=== PATIENT | female | born 1945 | race Caucasian/White ===

== ENCOUNTER 2017-02-22 02:49 | Inpatient (IN) | payer OTHER ==
[2017-02-22] VITALS (36 sets, daily range): BP systolic 68–174; BP diastolic 29–119
[~2017-02-22] VITALS: Ht 165.1 cm; Wt 63.7 kg
--- NOTE | ~2017-02-22 | HC ---
[facility] [place] [address] CONSULTATION Name: FRANCES PEARSON Room #: 208-P [facility] IN M.R.#: [id number] Admission: 02/22/17 Attend Phys: Yong Serrato DO Discharge: Date of : 41 Report #: [id number] THIS REPORT FOR: //name// CC: Yong Lange REASON FOR CONSULTATION: I was asked to evaluate concerning a community-acquired pneumonia. HISTORY OF PRESENT ILLNESS: The patient is a 71-year-old with underlying history of COPD who, for the last 3 days, has had progressive issue with cough, purulent sputum production and shortness of breath. She notes that her was sick with an upper respiratory tract infection prior to her onset. She has not had a flu vaccine this year. She does report a pneumococcal vaccine in the past. She denied any fever, chills or sweats. She has had some purulent sputum production at the onset without hemoptysis. Now has a mostly nonproductive cough. She presented to the Emergency Room with the above issues. She had oxygen saturations in the 80s. She is now on oxygen per nasal cannula at 2 liters. Blood pressure did drop in the 90s systolic with tachycardia in the 120s. She still remains tachycardic, although blood pressure has improved. She has received IV fluids and was started on vancomycin, Zosyn, and Levaquin. ALLERGIES: DOXYCYCLINE, ERYTHROMYCIN, SULFA, GUAIFENESIN. MEDICATIONS: As noted on her MAY, which were reviewed including her current antibiotics as listed above. She has been on inhaled corticosteroids, but no oral steroids prior to her admission. PAST MEDICAL HISTORY: COPD, diabetes, depression, osteoarthritis, fibromyalgia, stroke, UTI. FAMILY HISTORY: Noncontributory. SOCIAL HISTORY: She is a past smoker, no significant alcohol intake. REVIEW OF SYSTEMS: No chest pain, nausea, vomiting or diarrhea. No dysuria or frequency. The patient denies any recent travel, HIV risk factors, tuberculosis. PHYSICAL EXAMINATION: VITAL SIGNS: She was afebrile and hemodynamically stable with blood pressure 102/57, pulse 120, a MAP of 71. She is on 2 liters of oxygen per nasal cannula with an O2 saturation of 95%. GENERAL: She is alert and conversant. She was receiving a nebulized treatment [address] [address] CONSULTATION Name: FRANCES PEARSON Room #: 208-P [facility] IN ..#: [id number] Admission: 02/22/17 Attend Phys: Yong Serrato DO Discharge: Date of : 41 Report #: [id number] at the beginning of my evaluation. HEENT: Unremarkable. NECK: Supple. No adenopathy. LUNGS: Decreased breath sounds bilaterally with upper airway rhonchi, mostly in the upper mid chest. HEART: Tachycardic and regular. ABDOMEN: Soft and nontender. No hepatosplenomegaly or mass identified. EXTREMITIES: Unremarkable. NEUROLOGIC: Nonfocal. LABORATORY STUDIES: Sodium 145, potassium 3.4, bicarbonate 22, creatinine 1.4, lactate 4.7. Troponin negative. BNP 1463. INR 1. Hemoglobin 9.7, WBC 11.6, platelet count 362,000. Procalcitonin 0.15. ABG on 2 liters showed a pO2 of 68, pCO2 34, pH 7.32. Lactate of 5. Blood and sputum cultures are pending. Influenza antigen negative. Chest x-ray, no acute pulmonary infiltrates. IMPRESSION: A 71-year-old with exacerbation of chronic obstructive pulmonary disease, acute bronchitis with associated tachycardia. She dropped her pressure initially, which is responding to IV fluids. The patient has not received a flu vaccination. PLAN: We would recommend continuing IV antibiotic therapy along with corticosteroids. We will add Tamiflu. We will screen for viral respiratory pathogens and await sputum culture. Once patient is out of the Intensive Care Unit and stabilized, we will vaccinate. <ELECTRONICALLY SIGNED> By: Cuauhtemoc Haas MD 02/26/17 1357 1042 1844 Cuauhtemoc Haas MD /nt
--- NOTE | ~2017-02-22 | EKG ---
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 : 1945 Requested By: George Pierre Order Number: [id number] MD: Eliazar Fang Measurements Intervals [place] Rate: 137 P: 81 MI: 101 QRS: 29 QRSD: 88 T: -12 QT: 304 QTc: 459 Interpretive Statements Sinus tachycardia ventricular premature complexes Borderline T abnormalities, inferior leads Baseline wander in lead(s) V1,V2 Compared to ECG 01/06/2013 14:31:55 Ventricular premature complex(es) now present Electronically Signed On 02-22-2017 9:19:39 CENTRAL OFFICE INSTALLER by Eliazar Fang [email or web address] <ELECTRONICALLY SIGNED> By: Eliazar Fang MD, [facility] 02/22/17 0919 0256 0256 Eliazar Fang MD, [facility] /EPI
--- NOTE | ~2017-02-22 | HC ---
[facility] [place] [address] CONSULTATION Name: FRANCES PEARSON Room #: 208-P [facility] IN ..#: [id number] Admission: 02/22/17 Attend Phys: Danyel Reed MD Discharge: 03/06/17 Date of : 41 Report #: [id number] THIS REPORT FOR: //name// CC: Danyel Lange DATE OF SERVICE: 02/22/2017 REASON FOR CONSULTATION: Shortness of breath. IMPRESSION: 1. Exacerbation of chronic obstructive pulmonary disease. 2. Acute hypoxemic respiratory failure. 3. Acute kidney injury. PLAN: At the time, EKG, D-dimer, viral panel, Legionella and strep urine test, SCDs, corticosteroids and V/Q scan were ordered as well as a procalcitonin. Flutter and sputum studies were ordered as well as chest x-ray and ABG. HISTORY OF PRESENT ILLNESS: A 71-year-old female with history of cough, shortness of breath for a week and weakness, unable to get out of bed. She did not have the flu vaccine, however, had pneumonia shot, was found to have sats in the 80s in the ER and placed on O2. Had a tachycardia in the ER and was given fluids. ALLERGIES: To GUAIFENESIN, SULFA, DOXYCYCLINE and ERYTHROMYCIN. MEDICATIONS: Reviewed. FAMILY HISTORY: Noncontributory. SOCIAL HISTORY: Positive tobacco in past. Negative ETOH. REVIEW OF SYSTEMS: No chest pain. No nausea or vomiting or dysuria. No hemoptysis or hematemesis. Does have a history of fibromyalgia, osteoarthritis, diabetes, UTI, depression and COPD. PHYSICAL EXAMINATION: VITAL SIGNS: She was on 2 liters. Awake, alert and remembered me from the past. LUNGS: Showed decreased breath sounds. HEART: Tachycardic. ABDOMEN: Bowel sounds present. EXTREMITIES: Showed no clubbing or edema. LABORATORY DATA: Creatinine . Hemoglobin was 9.7 and white count 11.6. [facility] [address] [place] [address] CONSULTATION Name: FRANCES PEARSON Room #: 208-[facility]#: [id number] Admission: 02/22/17 Attend Phys: Danyel Reed MD Discharge: 03/06/17 Date of : 43 Report #: [id number] Blood cultures have been drawn. RADIOLOGICAL DATA: Unable to do CT PE protocol. Chest x-ray did not show acute infiltrate. <ELECTRONICALLY SIGNED> By: Josh Good MD 07/17/17 2043 [id number] [id number] Josh Good MD /nt
--- NOTE | ~2017-02-22 | TEE ---
[facility] [place] [address] TRANSESOPHAGEAL ECHOCARDIOGRAM Name: FRANCES PEARSON Room #: 208-P [facility] IN [facility]#: [id number] Admission: 02/22/17 Attend Phys: Danyel Reed MD Discharge: Date of : 41 Date of Service: 02/22/17 1618 Report #: [id number] THIS REPORT FOR: //name// CC: Yong Lange DATE OF SERVICE: 02/22/2017 REASON FOR CONSULTATION: 1. Exacerbation of COPD. 2. Possible pneumonia, possible viral infection/bronchitis. 3. History of diabetes. 4. History of CVA and dementia. 5. Acute kidney injury. 6. Leukocytosis. 7. Anemia. PLAN: Continue antibiotics per ID, corticosteroids, aerosol therapy. We will follow closely with you. DVT and ulcer prophylaxis. HISTORY: A 71-year-old female comes in with cough, shortness of breath with her , who has been sick, denies fever, chills or night sweats. Denies nausea or vomiting. PAST MEDICAL HISTORY: Includes COPD, diabetes, depression, fibromyalgia, osteoarthritis, CVA, COPD, distant history of MRSA. Meds have included Livox, Protonix, Depakene, Ventolin, Flonase, Depakote. ALLERGIES: DOXYCYCLINE, ERYTHROMYCIN, GUAIFENESIN, SULFA. SOCIAL HISTORY: Positive tobacco, quit approximately 7 years ago, ETOH per chart. PAST SURGICAL HISTORY: Include bladder repair, partial hysterectomy, left hip pinning. REVIEW OF SYSTEMS: Include COPD, depression, osteoarthritis, fibromyalgia, CVA, GERD, hyperlipidemia, and dementia. The patient denied a history of asthma. PHYSICAL EXAMINATION: VITAL SIGNS: On exam, temperature 97.9, pulse 100, respirations 23, BP 125/64. EYES: Negative icterus. LUNGS: Wheeze bilaterally. HEART: Regular, tachycardic. ABDOMEN: Bowel sounds present. [facility] [place] [address] TRANSESOPHAGEAL ECHOCARDIOGRAM Name: FRANCES PEARSON Room #: 208-P [facility] IN [facility].#: [id number] Admission: 02/22/17 Attend Phys: Danyel Reed MD Discharge: Date of : 41 Date of Service: 02/22/178 Report #: [id number] EXTREMITIES: Showed no calf tenderness. LAB DATA: White count 11.6, hemoglobin 9.7, platelets 362. BUN 16, creatinine 1.5. ProBNP 1463. Influenza negative. Initial ABG on 2 liters 7.323, pCO2 of 35, pO2 of 69. Chest x-ray showed pulmonary hyperexpansion. D-dimer 0.72. Troponin less than 0.04. We will follow closely with you. <ELECTRONICALLY SIGNED> By: Josh Good MD 02/27/17 1907 17 1636 Josh Good MD /rolo
--- NOTE | ~2017-02-22 | EKG ---
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 : 1945 Requested By: Josh Good Order Number: [id number] MD: Eliazar Fang Measurements Intervals [place] Rate: 115 P: 50 WI: 126 QRS: 24 QRSD: 86 T: 64 QT: 357 QTc: 494 Interpretive Statements Sinus tachycardia Ventricular premature complex Borderline low voltage, extremity leads Borderline prolonged QT interval Compared to ECG 01/06/2013 14:31:55 Ventricular premature complex(es) now present Electronically Signed On 02-22-2017 9:22:42 ANATOMIC PATHOLOGIST by Eliazar Fang [email or web address] <ELECTRONICALLY SIGNED> By: Eliazar Fang MD, [facility] 02/22/17921 0 0 Eliazar Fang MD, [facility] /EPI
[~2017-02-22 02:49] MED LIST: ACETAMINOPHEN-1 EAC1 PO; ACETAMINOPHEN325 M1 PO; ACYCLOVIR 400400 MG PO; ADVAIR HFA 1112 UNIT IH; AMARYL1 MG PO; AMBIEN 5 MG TABL5 M1 PO; AMOXICILLIN 50500 M1 PO; ASPIRIN EC81 M1 PO; ATROVENT15 ML; AVELOX400 MG PO; BISACODYL SUPP10 MG RECTAL; CELEXA 20 MG TA20 M1 PO; CIPROFLOXACIN500 M1 PO; CLONAZEPAM 1 MG1 M1 PO; COLACE100 MG PO; DEPAKENE250 MG PO; DEPAKOTE250 MG PO; DICLOFENAC SODI75 M1 PO; ENOXAPARIN40 MG/0.1 SUBQ; ESTRACE0.5 MG PO; FENTANYL PA12 MCG/H1 TRANSDERM; FISH OIL 1,0001 EAC9 PO; FLONASE NS; FLONASE16 GM NASAL; GENTEAL GEL DRO15 ML; GENTEAL GEL DRO15 ML OPHTHALMIC; IBUPROFEN 400400 M1 PO; IBUPROFEN 400400 M2 PO; IPRATROPIUM INH; LIDODERM 5%1 PATC1 TRANSDERM; LUVOX 50MG TABL50 M1 PO; MACROBID 100 M100 M1 PO; METOPROLOL SUCC25 M1 PO; MILK OF MA2400 MG/10 PO; NORCO 5-325 TA1 EACH PO; NORVASC 2.5 MG2.5 M1 PO; NYSTATIN 1100000 U/M OR; OXAZEPAM 15 MG15 M1 PO; PREDNISONE 10 M10 MG; PREDNISONE50 MG PO; PREMARIN0.625 MG PO; PROTONIX40 M2 PO; PYRIDIUM200 MG PO; ROBAXIN500 MG PO; STERAPRED DS10 MG; SYMBICORT160 MCG/4. INH; SYMBICORT80 MCG/4.1 INH; TOPROL XL25 MG PO; TRAMADOL 50 MG50 MG PO; TUSSIONEX PENN473 ML; VENTOLIN HFA INH8 GM INH; VENTOLIN17 GM; VOLTAREN GEL 1100 G2 TOP; XOPENEX0.31 MG/3; ZOCOR40 MG PO; ZYRTEC 10 MG TA10 MG PO; ZYRTEC10 M2 PO; ZYVOX600 MG PO
[2017-02-22 03:16] LABS: HEMATOCRIT 30.8 % (37.0-47.0); HEMOGLOBIN 9.7 gm/dL (12.0-15.0); MCH 26.1 pg (26.0-34.0); MCHC 31.6 g/dL (28.0-37.0); MCV 82.6 fL (80.0-100.0); RBC 3.73 mil/uL (4.20-5.00); RDW 15.8 % (10.5-14.5); WBC 11.6 thou/uL (4.0-11.0)
[2017-02-22 03:24] LABS: ANION GAP 12 mmol/L (7-16); BUN 16 mg/dL (7-18); CALCIUM 9.1 mg/dL (8.5-10.1); CHLORIDE 106 mmol/L (98-107); CO2 25 mmol/L (21-32); CREATININE 1.5 mg/dL (0.6-1.0); GLUCOSE 206 mg/dL (74-106); POTASSIUM 3.7 mmol/L (3.5-5.1); SODIUM 143 mmol/L (136-145)
[2017-02-22 03:33] LABS: TROPONIN-I < 0.04 ng/mL (<0.06)
[2017-02-22] MEDS ORDERED: FLONASE 0.05%50 MCG NASAL (04:45)
[2017-02-22] MEDS ORDERED: DEPAKOTE 250MG250 M1 PO (04:46)
[2017-02-22] MEDS ORDERED: PROTONIX40 M1 PO (04:47)
[2017-02-22] MEDS ORDERED: ZINC SULFATE220 MG PO (04:47)
[2017-02-22] MEDS ORDERED: KLONOPIN1 MG PO (04:48)
[2017-02-22] MEDS ORDERED: VALPROIC A250 MG/51 PO (04:49)
[2017-02-22] MEDS ORDERED: COMBIVENT RESPIM4 GM (04:49)
[2017-02-22] MEDS ORDERED: SIMVASTATIN40 MG PO (04:50)
[2017-02-22] MEDS ORDERED: LUVOX 50MG TABL50 M1 PO (04:50)
[2017-02-22] MEDS ORDERED: COMBIVENT RESPIM4 GM INH (04:51)
[2017-02-22] MEDS ORDERED: MELATONIN3 MG PO (04:51)
[2017-02-22 06:05] LABS: BE(vivo) -7.6 mmol/L (-2 to +3); HCO3 17.6 mmol/L (22.0-26.0); PCO2 34.8 mmHg (35.0-45.0); PO2 68.6 mmHg (80.0-100.0); pH 7.323 (7.360-7.450); sO2 92.6 % (92.0-98.0)
[2017-02-22 06:17] LABS: APTT 22.5 Seconds (24.5-32.8); PROTIME 10.7 Seconds (9.3-11.4)
[2017-02-22 07:30] LABS: CALCIUM 7.7 mg/dL (8.5-10.1); CREATININE 1.4 mg/dL (0.6-1.0); POTASSIUM 3.4 mmol/L (3.5-5.1)
[2017-02-22 10:49] LABS: CREATININE 1.4 mg/dL (0.6-1.0)
[2017-02-22 10:54] LABS: FIBRINOGEN 374.3 mg/dL (210-360)
[2017-02-22 11:01] LABS: APTT 29.4 Seconds (24.5-32.8)
[2017-02-22 16:36] LABS: CALCIUM 7.8 mg/dL (8.5-10.1); POTASSIUM 4.2 mmol/L (3.5-5.1)
[2017-02-22 16:37] LABS: APTT 28.1 Seconds (24.5-32.8)
[2017-02-22 20:14] LABS: APTT 28.2 Seconds (24.5-32.8); FIBRINOGEN 313.8 mg/dL (210-360)
[2017-02-23] VITALS (20 sets, daily range): BP systolic 109–143; BP diastolic 50–128
[2017-02-23 04:32] LABS: HEMATOCRIT 22.4 % (37.0-47.0); MCH 26.2 pg (26.0-34.0); MCHC 31.5 g/dL (28.0-37.0); MCV 83.2 fL (80.0-100.0); RBC 2.69 mil/uL (4.20-5.00); RDW 15.6 % (10.5-14.5); WBC 9.4 thou/uL (4.0-11.0)
[2017-02-23 04:40] LABS: CALCIUM 8.4 mg/dL (8.5-10.1); CREATININE 0.9 mg/dL (0.6-1.0); POTASSIUM 3.8 mmol/L (3.5-5.1)
[2017-02-23 04:44] LABS: HEMOGLOBIN 7.1 gm/dL (12.0-15.0)
[2017-02-23 16:10] LABS: GLYCOHEMOGLOBIN (HGB A1C) 5.3 % (4.8-5.6)
[2017-02-24 05:27] VITALS: BP 133/64
[2017-02-24 06:02] LABS: HEMATOCRIT 22.9 % (37.0-47.0); HEMOGLOBIN 7.1 gm/dL (12.0-15.0); MCH 25.8 pg (26.0-34.0); MCHC 31.2 g/dL (28.0-37.0); MCV 82.8 fL (80.0-100.0); PLATELET COUNT 286 thou/uL (150-400); RBC 2.77 mil/uL (4.20-5.00); RDW 15.6 % (10.5-14.5)
[2017-02-24 06:40] LABS: ABSOLUTE NEUTROPHILS 12.1 thou/uL (1.4-8.2); METAMYELOCYTES 1 %; PLATELET ESTIMATE NORMAL
[2017-02-24 07:40] VITALS: BP 142/65
[2017-02-24 10:30] VITALS: BP 144/66
[2017-02-24 11:10] VITALS: BP 144/66
[2017-02-24 15:15] VITALS: BP 130/60
[2017-02-24 20:00] VITALS: BP 152/61
[2017-02-25 03:45] VITALS: BP 147/65
[2017-02-25 04:39] LABS: HEMATOCRIT 24.6 % (37.0-47.0); HEMOGLOBIN 7.7 gm/dL (12.0-15.0); MCH 25.9 pg (26.0-34.0); MCHC 31.3 g/dL (28.0-37.0); MCV 82.7 fL (80.0-100.0); RBC 2.97 mil/uL (4.20-5.00); RDW 15.8 % (10.5-14.5); WBC 10.7 thou/uL (4.0-11.0)
[2017-02-25 04:45] LABS: CALCIUM 8.8 mg/dL (8.5-10.1)
[2017-02-25 04:48] LABS: POTASSIUM 2.9 mmol/L (3.5-5.1)
[2017-02-25 07:21] VITALS: BP 156/80
[2017-02-25 12:10] VITALS: BP 144/71
[2017-02-25 21:30] VITALS: BP 156/67
[2017-02-26 04:50] VITALS: BP 147/67
[2017-02-26 05:06] LABS: HEMATOCRIT 27.2 % (37.0-47.0); HEMOGLOBIN 8.8 gm/dL (12.0-15.0); MCH 26.4 pg (26.0-34.0); MCHC 32.5 g/dL (28.0-37.0); MCV 81.4 fL (80.0-100.0); RBC 3.34 mil/uL (4.20-5.00); RDW 15.8 % (10.5-14.5); WBC 10.5 thou/uL (4.0-11.0)
[2017-02-26 05:15] LABS: CALCIUM 9.1 mg/dL (8.5-10.1); POTASSIUM 3.9 mmol/L (3.5-5.1)
[2017-02-26 05:18] LABS: % SATURATION 7 % (20-39); IRON 22 ug/dL (50-170); TIBC 294 ug/dL (250-450)
[2017-02-26 06:18] LABS: FOLIC ACID 33.3 ng/mL (8.6-58.9)
[2017-02-26 07:30] VITALS: BP 139/86
[2017-02-26 11:40] VITALS: BP 125/47
[2017-02-26 15:50] VITALS: BP 144/73
[2017-02-26 19:21] VITALS: BP 130/65
[2017-02-26] MEDS ORDERED: LISINOPRIL2.5 MG PO (21:27)
[2017-02-26 22:07] LABS: ADENOVIRUS Negative (Negative); INFLUENZA A Negative (Negative); INFLUENZA B Negative (Negative); METAPNEUMOVIRUS Negative (Negative); PARAINFLUENZA 1 Negative (Negative); PARAINFLUENZA 2 Negative (Negative); PARAINFLUENZA 3 Negative (Negative); RHINOVIRUS Negative (Negative); RSV A Negative (Negative); RSV B Positive (Negative)
[2017-02-27 04:26] VITALS: BP 150/80
[2017-02-27 07:10] VITALS: BP 147/79
[2017-02-27 11:50] VITALS: BP 129/57
[2017-02-27 15:40] VITALS: BP 131/53
[2017-02-27 19:34] VITALS: BP 131/59
[2017-02-28 03:34] VITALS: BP 151/61
[2017-02-28 07:44] VITALS: BP 143/65
[2017-02-28 11:29] VITALS: BP 113/50
[2017-02-28 15:21] VITALS: BP 133/62
[2017-02-28 19:31] VITALS: BP 143/49
[2017-03-01 03:40] VITALS: BP 153/69
[2017-03-01 07:46] VITALS: BP 132/62
[2017-03-01 08:00] LABS: BE(vivo) 6.4 mmol/L (-2 to +3); HCO3 29.7 mmol/L (22.0-26.0); PO2 60.9 mmHg (80.0-100.0); pH 7.522 (7.360-7.450); sO2 93.7 % (92.0-98.0)
[2017-03-01 12:17] VITALS: BP 122/35
[2017-03-01 13:23] LABS: CALCIUM 8.6 mg/dL (8.5-10.1); CREATININE 0.9 mg/dL (0.6-1.0); POTASSIUM 3.5 mmol/L (3.5-5.1)
[2017-03-01 15:41] VITALS: BP 143/48
[2017-03-01 19:18] VITALS: BP 128/52
[2017-03-02 03:54] VITALS: BP 133/65
[2017-03-02 07:43] VITALS: BP 128/62
[2017-03-02 11:19] VITALS: BP 113/72
[2017-03-02 15:27] VITALS: BP 110/74
[2017-03-02 19:25] VITALS: BP 137/47
[2017-03-03 04:10] VITALS: BP 134/60
[2017-03-03 09:00] VITALS: BP 130/62
[2017-03-03 13:20] VITALS: BP 114/52
[2017-03-03 16:20] VITALS: BP 110/34
[2017-03-03 16:47] VITALS: BP 130/60
[2017-03-03 19:52] VITALS: BP 136/65
[2017-03-04 04:20] VITALS: BP 130/54
[2017-03-04 08:00] VITALS: BP 128/53
[2017-03-04 11:30] VITALS: BP 128/54
[2017-03-04 15:40] VITALS: BP 134/64
[2017-03-04 19:43] VITALS: BP 135/62
[2017-03-05 03:18] VITALS: BP 142/58
[2017-03-05 07:11] LABS: HEMATOCRIT 24.9 % (37.0-47.0); MCH 26.6 pg (26.0-34.0); MCV 83.2 fL (80.0-100.0); PLATELET COUNT 283 thou/uL (150-400); RDW 15.7 % (10.5-14.5); WBC 11.4 thou/uL (4.0-11.0)
[2017-03-05 07:20] VITALS: BP 141/58
[2017-03-05 07:55] LABS: CALCIUM 8.8 mg/dL (8.5-10.1); CREATININE 0.8 mg/dL (0.6-1.0); POTASSIUM 3.4 mmol/L (3.5-5.1)
[2017-03-05 12:01] LABS: ABSOLUTE NEUTROPHILS 10.7 thou/uL (1.4-8.2); ANISOCYTOSIS 2+; MICROCYTES 1+; POLYCHROMASIA SLIGHT
[2017-03-05 12:14] VITALS: BP 126/54
[2017-03-05 16:02] VITALS: BP 123/50
[2017-03-05 19:47] VITALS: BP 141/58
[2017-03-06 04:21] VITALS: BP 149/81
[2017-03-06 07:10] VITALS: BP 144/77
[2017-03-06] MEDS ORDERED: PREDNISONE 10 M10 MG PO (09:11)
[2017-03-06 11:02] VITALS: BP 156/70
== END 2017-03-06 13:14 | DRG 871 ==
LOC: ER 02:49 → 2N 03:56 → ICU 03:56 → EROBS 03:56 → ER 03:56 → ICU 05:42 → 2N 02-23 17:14
PROVIDERS: Emergency Medicine; Hospitalist; Internal Medicine; Internal Medicine Geriatric Medicine; Internal Medicine Pulmonary Disease; Nurse Practitioner; Nurse Practitioner Family
DX: A41.9 Sepsis, unspecified organism (principal); J18.9 Pneumonia, unspecified organism; J96.01 Acute respiratory failure with hypoxia; N17.9 Acute kidney failure, unspecified; J44.0 Chronic obstructive pulmonary disease with (acute) lower respiratory infection; J44.1 Chronic obstructive pulmonary disease with (acute) exacerbation; F32.9 Major depressive disorder, single episode, unspecified; F03.90 Unspecified dementia, unspecified severity, without behavioral disturbance, psychotic disturbance, mood disturbance, and anxiety; E11.9 Type 2 diabetes mellitus without complications; M19.90 Unspecified osteoarthritis, unspecified site; J20.9 Acute bronchitis, unspecified; E78.5 Hyperlipidemia, unspecified; E87.6 Hypokalemia; F41.9 Anxiety disorder, unspecified; K21.9 Gastro-esophageal reflux disease without esophagitis; B97.4 Respiratory syncytial virus as the cause of diseases classified elsewhere; R26.81 Unsteadiness on feet; R65.20 Severe sepsis without septic shock; Z88.8 Allergy status to other drugs, medicaments and biological substances; Z88.2 Allergy status to sulfonamides; Z86.73 Personal history of transient ischemic attack (TIA), and cerebral infarction without residual deficits; Z88.1 Allergy status to other antibiotic agents; Z79.899 Other long term (current) drug therapy; Z87.891 Personal history of nicotine dependence; Z86.14 Personal history of Methicillin resistant Staphylococcus aureus infection; Z79.4 Long term (current) use of insulin
CPT/HCPCS: 10078; 10081; 27000

== ENCOUNTER 2018-08-14 08:32 | Inpatient (IN) | payer OTHER ==
[~2018-08-14] VITALS: Ht 165.1 cm; Wt 60.3 kg
[~2018-08-14 08:32] MED LIST changes: +COMBIVENT RESPIM4 GM; +COMBIVENT RESPIM4 GM INH; +DEPAKOTE 250MG250 M1 PO; +FLONASE 0.05%50 MCG NASAL; +KLONOPIN1 MG PO; +LISINOPRIL2.5 MG PO; +MELATONIN3 MG PO; +PREDNISONE 10 M10 MG PO; +PROTONIX40 M1 PO; +SIMVASTATIN40 MG PO; +VALPROIC A250 MG/51 PO; +ZINC SULFATE220 MG PO
[2018-08-14 08:33] VITALS: BP 138/48
[2018-08-14 09:49] LABS: HEMATOCRIT 30.4 % (37.0-47.0); HEMOGLOBIN 9.8 gm/dL (12.0-15.0); MCH 27.3 pg (26.0-34.0); MCHC 32.2 g/dL (28.0-37.0); MCV 84.7 fL (80.0-100.0); RBC 3.59 mil/uL (4.20-5.00); RDW 16.8 % (10.5-14.5); WBC 10.9 thou/uL (4.0-11.0)
[2018-08-14 10:00] LABS: ANION GAP 9 mmol/L (7-16); BUN 25 mg/dL (7-18); CHLORIDE 103 mmol/L (98-107); CO2 28 mmol/L (21-32); CREATININE 1.1 mg/dL (0.6-1.0); GLUCOSE 138 mg/dL (74-106); POTASSIUM 4.2 mmol/L (3.5-5.1); SODIUM 140 mmol/L (136-145)
[2018-08-14 10:08] LABS: TROPONIN-I <0.06 ng/mL (<0.06)
[2018-08-14 12:47] VITALS: BP 149/93
--- NOTE | 2018-08-14 13:22 | NUR ---
FIRST ATTEMPT TO CALL REPORT AT THIS TIME, WAS TOLD FLOOR RN WOULD "CALL RIGHT BACK"
[2018-08-14 14:06] VITALS: BP 156/60
[2018-08-14 19:21] VITALS: BP 147/62
--- NOTE | 2018-08-14 19:55 | NUR ---
[age] YEAR OLD FEMALE ADMITTED TO 3WEST ROOM 362. PT WAS BROUGHT INTO THE DUE TO SOA AND COUGH. PT IS ALERT AND ORIENTED TIMES FOUR. VSS, 95%RA, SR ON TELE. PT DENIES PAIN AT THIS TIMES. PT TOLERATES MEDS AND DINNER. PT UP TO RESTROOM WITH STANDBY ASSIST WITH WALKER. WILL CONTINUE TO MONITOR.
[2018-08-15 03:28] VITALS: BP 130/63
[2018-08-15 05:40] LABS: CALCIUM 9.8 mg/dL (8.5-10.1); MAGNESIUM 2.1 mg/dL (1.8-2.4); POTASSIUM 4.2 mmol/L (3.5-5.1)
--- NOTE | 2018-08-15 06:43 | NUR ---
ASSUMED CARE OF PT AT 1900. A&Ox4, PLEASANT AND COOPERATIVE. ST ON TELE W ONE 13 RUN OF VTACH ON TELE WHILE SHE WAS SLEEPING, MONITORING CLOSELY. PRODUCTIVE COUGH, WHEEZY LUNG SOUNDS. BREATHING TXs AND IV MEDS GIVEN ORDERED. PT WAS ABLE TO SLEEP AROUND 0000. UP TO BR W/ WALKER W SBA. GLUCOSE WAS 132 AT DINNER, NO INSULIN GIVEN. CURRENTLY RESTING. PROGRESSING WELL TOWARDS POC GOALS.
[2018-08-15 07:15] VITALS: BP 149/77
--- NOTE | 2018-08-15 08:12 | EKG ---
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: [facility] : 1945 Requested By: Ace Garces Order Number: [id number] MD: Eliazar Fang Measurements Intervals [place] Rate: 106 P: 78 NM: 128 QRS: 35 QRSD: 74 T: 49 QT: 327 QTc: 435 Interpretive Statements Sinus tachycardia Otherwise normal tracing Compared to ECG 02/22/2017 08:11:24 No significant change was found Electronically Signed On 08-15-2018 8:12:17 CDT by Eliazar Fang [email or web address] ��������������������������������������������� <ELECTRONICALLY SIGNED> ���������������������������������������� By: Eliazar Fang MD, [facility] ��������������������������������������������� 08/15/18 0812 0857 0857 Eliazar Fang MD, [facility] /EPI
--- NOTE | 2018-08-15 08:17 | NUR ---
ASSESSMENT: CM REVIEWED CHART AND MET WITH PATIENT AT THE [facility]. PT WAS ADMITTED WITH COPD EXACERBATION. PT REPORTS SHE LIVES IN A HOUSE WITH HER . PT REPORTS ONE STEP TO ENTER AND NO STEPS SHE HAS TO USE ONCE INSIDE. PT REPORTS SHE USES A WALKER FOR AMBULATION. PT REPORTS HAVING A GRAB BAR AND SHOWER CHAIR AND IS INDEPENDENT WITH ADLS. PT REPORTS SHE HAS BEEN TO [facility] IN THE PAST FOR SNF AND LOVED IT THERE. PT REPORTS SHE HAD HH IN THE PAST BUT UNSURE THE AGENCY AND REPORTS SHE DID NOT FIND HH HELPFUL AND STATES HER IS MORE HELPFUL. CM DISCUSSED ROLE. PT STATES SHE DOES NOT ANTICIPATE HAVING ANY NEEDS THIS TIME AND WANTS TO RETURN HOME. PT/OT ORDERED. CM WILL CONTINUE TO FOLLOW TO ASSIST NEEDED. CM ATTEMPTED TO CONTACT PATIENTS DAUGHTER BUT SHE DID NOT ANSWER AND VM HAS NOT BEEN SET UP. PT REPORTS HER DAUGHTER AND GRANDAUGHTER ARE VERY SUPPORTIVE. CM WILL CONTINUE TO FOLLOW TO ASSIST NEEDED.
[2018-08-15] MEDS ORDERED: DEPAKOTE125 MG PO (10:35)
[2018-08-15] MEDS ORDERED: TYLENOL EXTRA500 MG PO (10:40)
[2018-08-15] MEDS ORDERED: KLOR-CON 1010 MEQ PO (10:43)
[2018-08-15] MEDS ORDERED: CEFDINIR300 MG PO (10:45)
[2018-08-15] MEDS ORDERED: LUVOX 50MG TABL50 M1 PO (10:46)
[2018-08-15 15:33] VITALS: BP 150/66
--- NOTE | 2018-08-15 18:29 | NUR ---
PT WAS EATING SALAD FOR LUNCH AND BEGAN FORCEFULLY COUGHING..MADE PAITIENT NPO...SPEECH CONSULTED [facility] CALLED FOR TREATMENT..SPEECH RECOMMENDED STRICT NPO AND NOTIFIED .WILL MONITOR..
[2018-08-15 19:11] VITALS: BP 156/70
[2018-08-16 03:40] VITALS: BP 136/74
[2018-08-16 05:18] LABS: HEMATOCRIT 27.8 % (37.0-47.0); HEMOGLOBIN 9.1 gm/dL (12.0-15.0); MCH 27.5 pg (26.0-34.0); MCHC 32.7 g/dL (28.0-37.0); MCV 84.1 fL (80.0-100.0); RBC 3.31 mil/uL (4.20-5.00); RDW 16.7 % (10.5-14.5); WBC 8.8 thou/uL (4.0-11.0)
[2018-08-16 05:45] LABS: CALCIUM 10.1 mg/dL (8.5-10.1); CREATININE 1.2 mg/dL (0.6-1.0); POTASSIUM 3.4 mmol/L (3.5-5.1)
[2018-08-16 07:55] VITALS: BP 152/76
--- NOTE | 2018-08-16 07:58 | NUR ---
ASSUMED CARE OF PT AT 1900. A&Ox4, PLEASANT, COOPERATIVE. VS STABLE. NPO MOST OF NOC. DID GIVE PO MEDS FOR ANXIETY AND INSOMNIA D/T CRYING AND HIGH ANXIETY LEVEL LAST NOC. 1-2L O2 VIA NC, WHEEZY, COARSE W/ CRACKLES ALL AREAS. C/O STOMACH DISTENTION AND SWELLING. UP MORE THAN 10XS TO BR W/ LOW UOP. SLOW PROGRESSION TOWARDS POC GOALS.
--- NOTE | 2018-08-16 16:24 | NUR ---
Assumed care of pt at 0700. Pt has been A&Ox4. Patient has denied pain today. SOB with exertion. Pt has been ST with PVCs on tele. Dr. Reddy met with pt this morning and discussed Echo results. No notable concerns from Echo. Pt is in good spirits and is actively working toward goals of more movement and respiratory improvement. Pt is progressing toward her POC and DC goals. Will continue to monitor and assess.
[2018-08-16 16:45] VITALS: BP 146/60
[2018-08-16 19:51] VITALS: BP 132/52
[2018-08-17 04:30] VITALS: BP 179/73
[2018-08-17 07:52] VITALS: BP 155/73
--- NOTE | 2018-08-17 07:52 | NUR ---
Pt. requested anxiety med to help her relax and help her go to sleep since she had a busy day and feels tired. Lorazepam 0.5 mg IV given around 2104. She slept well and stated it did help with her anxiety though when she first woke up she got disoriented. She easily reoriented and this am remembered what happened. O2 at 2L/NC , shortness of breath with exertion. ST with PVC's and HR up in the 130's -140's when ambulating to bathroom. Scheduled metoprolol IV given. Uses walker to ambulate. Wears own brief for stress incontinence. Kept NPO per order. Will continue to monitor.
--- NOTE | 2018-08-17 13:43 | NUR ---
Assumed care of pt at 0700. Pt has been A&Ox4. Pt reports being more tired than usual today even though she "slept better" last night. Pt denies pain. SOB upon exertion. Pt reamins NPO and in order to increase nutritional intake, per Dr. Eugene, can trial and resume soft foods until speech eval tomorrow. Per Dr. Eugene will also try to wean pt off of 2L NC today. Pt is slowly progressing towrd POC goals. Will continue to monitor and assess.
[2018-08-17 15:50] VITALS: BP 146/71
--- NOTE | 2018-08-17 16:28 | NUR ---
DC'd pt's O2 and saturations remained in mid-90s at a 5-minute and 30-minute check. RT saw pt later in afternoon and confirmed pt saturations were in [id number]-pnqll 90s on RA.
[2018-08-17 19:20] VITALS: BP 140/69
[2018-08-18 03:45] VITALS: BP 160/77
--- NOTE | 2018-08-18 06:48 | NUR ---
ASSUMED CARE OF PT AT 1900. A&Ox4, COOPERATIVE. VS STABLE. WAS VERY TEARFUL WITH A LOT OF ANXIETY AT START OF SHIFT. HAD NOT RECEIVED CLONAZEPAM X 2 DOSES WHICH SHE HAS BEEN ON FOR 30 YEARS DUE TO CHANGES IN DIET. GAVE TO PT W/ THICKENED LIQUIDS, NO COUGHING OR ASPIRATION NOTED. MELATONIN GIVEN. PT ABLE TO SLEEP AROUND 0300. MILD COUGHING THROUGH OUT SHIFT W/ OCC SPUTUM PRODUCTION. NO ACUTE DISTRESS AND PROGRESSING WELL TOWARDS POC GOALS. WILL CONTINUE TO PROVIDE CARE AND MONITOR.
[2018-08-18 07:53] VITALS: BP 150/76
[2018-08-18 16:01] VITALS: BP 149/68
--- NOTE | 2018-08-18 20:08 | NUR ---
No acute changes this shift. Patient anxious at times, but given support when needed. Tylenol given for hip pain with an ice pack. Patient reported significant pain loss after tylenol administration. Patient did well with thickened liquids today and swallowed PO pills fine. Progress made toward plan of care at this time.
[2018-08-18 20:14] VITALS: BP 154/55
[2018-08-19 04:04] VITALS: BP 160/69
[2018-08-19 05:37] LABS: HEMATOCRIT 31.1 % (37.0-47.0); HEMOGLOBIN 9.8 gm/dL (12.0-15.0); MCH 26.7 pg (26.0-34.0); MCHC 31.6 g/dL (28.0-37.0); MCV 84.5 fL (80.0-100.0); RBC 3.68 mil/uL (4.20-5.00); RDW 16.9 % (10.5-14.5); WBC 7.4 thou/uL (4.0-11.0)
--- NOTE | 2018-08-19 05:43 | NUR ---
ASSUMED CARE AT 1900, ASSESSMENT COMPLETED. PT DENIED NAUSEA OR SOB. PT REPORTED LEFT HIP PAIN DURING THE DAY R/T BURSITIS, STATED IT IMPROVED GREATLY AFTER RECEIVING TYLENOL AND ICE PACK, HAS NOT C/O PAIN THE REST OF THE NIGHT. NO BM SINCE ADMISSION, GIVEN MIRALAX ON DAY SHIFT, PT REPORTS FREQ GAS BUT NO FEELING OF NEEDING TO HAVE A STOOL. ESSENTIAL TREMORS PRESENT, MILDLY WORSE AFTER RECEIVING IV STEROIDS. HS BLOOD SUGAR 145, NO INSULIN GIVEN. HAS BEEN ST OVERNIGHT, OCCASIONAL PVC, HR 98-112. BP MODERATELY ELEVATED, PLAN FOR INCREASED DOSE OF METOPROLOL TODAY. PT TOLERATING PUREE DIET AND THICKENED LIQUIDS, NO SIGNS OF ASPIRATION. NO OTHER CONCERNS, WILL CONTINUE TO MONITOR.
[2018-08-19 05:55] LABS: ALBUMIN 2.8 g/dL (3.4-5.0); CALCIUM 9.7 mg/dL (8.5-10.1); MAGNESIUM 2.3 mg/dL (1.8-2.4); POTASSIUM 3.3 mmol/L (3.5-5.1); TOTAL BILIRUBIN 0.3 mg/dL (<0.1-1.0); TOTAL PROTEIN 6.6 g/dL (6.4-8.2)
[2018-08-19 07:54] VITALS: BP 149/83
--- NOTE | 2018-08-19 12:40 | 2DMMODE ---
[address] [place] [address] 2 D/M-MODE ECHOCARDIOGRAM Name: FRANCES PEARSON Room #: 362-P [facility] IN [facility].#: [id number] ������������� Admission: 08/14/18 ������������� Attend Phys: Danyel Reed MD Discharge: ��� ������������� ��� Date of : 41 Date of Service: 08/15/18 1328 �� Report #: [id number] �������� �������������������������������������������� THIS REPORT FOR: //name// Accession No. : [id number] Patient Name / ID : MICHEL Lane / [id number] Exam Date : 08/15/2018 13:28:26 ( Approved ) Study Comment : Sex / Age : F / 73Y Creator : Jona Pierce Dictator : Package Sealer : Sailmaker : Goran Reddy MD Approver2 : Report Date : 08/15/2018 15:27:37 My Comment : APPROVED REPORT Study performed: 08/15/2018 13:28:26 EXAM: Comprehensive 2D, Doppler, and color-flow Echocardiogram Patient Location: Bedside Room #: 362 Status: routine BSA: 1.66 HR: 111 bpm BP: 149/77 mmHg Rhythm: Tachycardia Other Information Study Quality: Adequate Indications Arrhythmia COPD Diabetes Hypertension/HDD Ventricular tachycardia 2D Dimensions IVC: 18.00 mm Volumes Left Atrial Volume (Systole) [facility] [address] [place] [address] 2 D/M-MODE ECHOCARDIOGRAM Name: FRANCES PEARSON Room #: 362-P ADM IN [facility].#: [id number] ������������� Admission: 08/14/18 ������������� Attend Phys: Danyel Reed MD Discharge: ��� ������������� ��� Date of : 41 Date of Service: 08/15/18 1328 �� Report #: [id number] �������� �������������������������������������������� Single Plane 4CH: 57.74 mL Single Plane 2CH: 42.51 mL LA ESV Index: 33.00 mL/m2 Aortic Valve AoV Peak Donnell.: 1.17 m/s AO Peak Gr.: 5.52 mmHg LVOT Max P.58 mmHg LVOT Max V: 0.80 m/s Pulmonary Valve PV Peak Donnell.: 0.86 m/s PV Peak Gr.: 2.94 mmHg Tricuspid Valve TR Peak Donnell.: 2.50 m/s TR Peak Gr.: 25.10 mmHg PA Pressure: 30.00 mmHg Left Ventricle The left ventricle is normal size. There is normal left ventricular wall thickness. The left ventricular systolic function is normal. The left ventricular ejection fraction is within the normal range. LVEF is 55-60%. Grade I - abnormal relaxation pattern. Right Ventricle The right ventricle is normal size. The right ventricular systolic function is normal. Atria Left atrium is at the upper limits of normal. The right atrium size is normal. Aortic Valve The aortic valve is normal in structure. No aortic regurgitation is present. There is no aortic valvular stenosis. Mitral Valve The mitral valve is normal in structure. Mild mitral regurgitation. No evidence of mitral valve stenosis. Tricuspid Valve The tricuspid valve is normal in structure. There is trace tricuspid regurgitation. Estimated PAP 30 mmHg. There is mild pulmonary hypertension. Pulmonic Valve The pulmonary valve is normal in structure. Trace pulmonic regurgitation. Great Vessels The aortic root is normal in size. IVC is normal in size and collapses >50% with [facility] [address] [place] [address] 2 D/M-MODE ECHOCARDIOGRAM Name: FRANCES PEARSON Room #: 362-P [facility] IN .R.#: [id number] ������������� Admission: 08/14/18 ������������� Attend Phys: Danyel Reed MD Discharge: ��� ������������� ��� Date of : 41 Date of Service: 08/15/18 1328 �� Report #: [id number] �������� �������������������������������������������� inspiration. Pericardium There is no pericardial effusion. <Conclusion> The left ventricle is normal size. There is normal left ventricular wall thickness. The left ventricular systolic function is normal. LVEF is 55-60%. Grade I - abnormal relaxation pattern. The right ventricle is normal size. The right ventricular systolic function is normal. Left atrium is at the upper limits of normal. The aortic valve is normal in structure. Mild mitral regurgitation. There is trace tricuspid regurgitation. Estimated PAP 30 mmHg. ��������������������������������������������� ���������������������������������������� By: ��������������������������������������������� 1328 1238 Goran Reddy MD /MICHAEL
--- NOTE | 2018-08-19 12:44 | 2DMMODE ---
[facility] [place] [address] 2 D/M-MODE ECHOCARDIOGRAM Name: FRANCES PEARSON Room #: 362-P [facility]#: [id number] ������������� Admission: 08/14/18 ������������� Attend Phys: Danyel Reed MD Discharge: ��� ������������� ��� Date of : 41 Date of Service: 08/15/18 1328 �� Report #: [id number] �������� �������������������������������������������� THIS REPORT FOR: //name// Sex/Age : F/73Y Height/Weight : 165.1cm/60.3kg Patient Name : FRANCES PEARSON Study Date : 2018-08-15 BSA : 1.66? Requesting Name : ECHO COMPLETE Date of : 1945 Request Doctor : DIONNE ROA Department : CARD --< Approved Report > Study performed: 08/15/2018 13:28:26 EXAM: Comprehensive 2D, Doppler, and color-flow Echocardiogram Patient Location: Bedside Room #: 362 Status: routine BSA: 1.66 HR: 111 bpm BP: 149/77 mmHg Rhythm: Tachycardia Other Information Study Quality: Adequate Indications Arrhythmia COPD Diabetes Hypertension/HDD Ventricular tachycardia 2D Dimensions IVC: 18.00 mm Volumes Left Atrial Volume (Systole) Single Plane 4CH: 57.74 mL Single Plane 2CH: 42.51 mL LA ESV Index: 33.00 mL/m2 Aortic Valve AoV Peak Donnell.: 1.17 m/s [facility] [address] [place] [address] 2 D/M-MODE ECHOCARDIOGRAM Name: FRANCES PEARSON Room #: 362-P ADM IN .R.#: [id number] ������������� Admission: 08/14/18 ������������� Attend Phys: Danyel Reed MD Discharge: ��� ������������� ��� Date of : 41 Date of Service: 08/15/18 1328 �� Report #: [id number] �������� �������������������������������������������� AO Peak Gr.: 5.52 mmHg LVOT Max P.58 mmHg LVOT Max V: 0.80 m/s Pulmonary Valve PV Peak Donnell.: 0.86 m/s PV Peak Gr.: 2.94 mmHg Tricuspid Valve TR Peak Donnell.: 2.50 m/s TR Peak Gr.: 25.10 mmHg PA Pressure: 30.00 mmHg Left Ventricle The left ventricle is normal size. There is normal left ventricular wall thickness. The left ventricular systolic function is normal. The left ventricular ejection fraction is within the normal range. LVEF is 55-60%. Grade I - abnormal relaxation pattern. Right Ventricle The right ventricle is normal size. The right ventricular systolic function is normal. Atria Left atrium is at the upper limits of normal. The right atrium size is normal. Aortic Valve The aortic valve is normal in structure. No aortic regurgitation is present. There is no aortic valvular stenosis. Mitral Valve The mitral valve is normal in structure. Mild mitral regurgitation. No evidence of mitral valve stenosis. Tricuspid Valve The tricuspid valve is normal in structure. There is trace tricuspid regurgitation. Estimated PAP 30 mmHg. There is mild pulmonary hypertension. Pulmonic Valve The pulmonary valve is normal in structure. Trace pulmonic regurgitation. Great Vessels The aortic root is normal in size. IVC is normal in size and collapses >50% with inspiration. Pericardium There is no pericardial effusion. [facility] [address] [place] [address] 2 D/M-MODE ECHOCARDIOGRAM Name: FRANCES PEARSON Room #: 362-P [facility]#: [id number] ������������� Admission: 08/14/18 ������������� Attend Phys: Danyel Reed MD Discharge: ��� ������������� ��� Date of : 41 Date of Service: 08/15/18 1328 �� Report #: [id number] �������� �������������������������������������������� <Conclusion> The left ventricle is normal size. There is normal left ventricular wall thickness. The left ventricular systolic function is normal. LVEF is 55-60%. Grade I - abnormal relaxation pattern. The right ventricle is normal size. The right ventricular systolic function is normal. Left atrium is at the upper limits of normal. The aortic valve is normal in structure. Mild mitral regurgitation. There is trace tricuspid regurgitation. Estimated PAP 30 mmHg. Electronically Approved : 08/19/2018 12:43:02 ��������������������������������������������� ���������������������������������������� By: ��������������������������������������������� 1328 1240 Goran Reddy MD /MICHAEL
[2018-08-19 16:10] VITALS: BP 134/69
--- NOTE | 2018-08-19 18:26 | NUR ---
PT REQUIRED 2-3L O2 THIS AM FOR DESAT TO 85%, WAS ABLE TO TITRATE TO ROOM AIR IN AFTERNOON AFTER PT UP TO CHAIR AND AMBULATED IN ROOM. PT SOA WITH EXERTION. PT TOLERATED PO DIET AND THICKENED LIQUIDS.
[2018-08-19 19:32] VITALS: BP 128/59
--- NOTE | 2018-08-20 04:56 | NUR ---
ASSUMED CARE AT START OF SHIFT PT HAVE NO CONCERNS VOICED UP TO BATHROOM WITH WALKER, FARE COLLECTOR SHOWS NSR NO ECTOPY NOTED PT RESTED WELL THROUGHOUT HOURLY ROUNDS, WILL CONINTUE WITH CURRENT PLAN OF CARE.
[2018-08-20 05:15] VITALS: BP 151/69
[2018-08-20 07:50] VITALS: BP 146/75
[2018-08-20] MEDS ORDERED: METOPROLOL SUCC50 MG PO (11:26)
[2018-08-20] MEDS ORDERED: LEVAQUIN 500 M500 M1 PO (11:26)
[2018-08-20] MEDS ORDERED: PULMICORT0.5 MG/21 INH (11:27)
[2018-08-20] MEDS ORDERED: PREDNISONE 10 M10 MG PO (11:31)
[2018-08-20 11:34] VITALS: BP 106/51
--- NOTE | 2018-08-20 11:44 | NUR ---
PTR ALERT AND ORIENTED TIMES FOUR. VSS, 97%RA, SR ON TELE. PT DENIES PAIN/SOA. PT TOLERATES MEDS AND MEALS. PT UP WALKING WITH WALKER TO RESTROOM. PLANS FOR DISCHARGE TODAY. PT PROGRESSING TOWRADS POC GOALS.
--- NOTE | 2018-08-20 11:54 | NUR ---
on-going assessment: CM REVIEWED CHART AND MET WITH PATIENT AT THE BEDSIDE. PT IS BEING DISCHARGED HOME TODAY. PT DECLINES HH STATING HER IS SUPPORTIVE ENOUGH AND HELPS HER AND DOES NOT WANT HH. PT DOES NOT REQUIRE HOME OXYGEN. PT REPORTS HER WILL PROVIDE A RIDE HOME TODAY. PT REPORTS NO FURTHER NEEDS FROM CM.
== END 2018-08-20 12:45 | disposition home or self-care (01) | DRG 189 ==
LOC: ER 08:32 → EROBS 10:40 → 3W 10:40
PROVIDERS: Emergency Medicine; Nurse Practitioner; Nurse Practitioner Family; ADMIT Hospitalist
DX: J96.21 Acute and chronic respiratory failure with hypoxia (principal); E43 Unspecified severe protein-calorie malnutrition; I47.2 Ventricular tachycardia; J44.1 Chronic obstructive pulmonary disease with (acute) exacerbation; E11.9 Type 2 diabetes mellitus without complications; F32.9 Major depressive disorder, single episode, unspecified; M19.90 Unspecified osteoarthritis, unspecified site; M79.7 Fibromyalgia; F03.90 Unspecified dementia, unspecified severity, without behavioral disturbance, psychotic disturbance, mood disturbance, and anxiety; E78.5 Hyperlipidemia, unspecified; R26.9 Unspecified abnormalities of gait and mobility; D63.8 Anemia in other chronic diseases classified elsewhere; F41.9 Anxiety disorder, unspecified; E87.6 Hypokalemia; N18.3 Chronic kidney disease, stage 3 (moderate); K59.00 Constipation, unspecified; K21.9 Gastro-esophageal reflux disease without esophagitis; R53.81 Other malaise; R13.10 Dysphagia, unspecified; Z87.440 Personal history of urinary (tract) infections; Z86.14 Personal history of Methicillin resistant Staphylococcus aureus infection; Z88.2 Allergy status to sulfonamides; Z88.6 Allergy status to analgesic agent; Z88.1 Allergy status to other antibiotic agents; Z87.891 Personal history of nicotine dependence; Z79.51 Long term (current) use of inhaled steroids; Z79.899 Other long term (current) drug therapy; I69.391 Dysphagia following cerebral infarction
CPT/HCPCS: 10879

== ENCOUNTER 2018-09-16 08:20 | Inpatient (IN) | payer OTHER ==
[~2018-09-16] VITALS: Ht 167.6 cm; Wt 60.7 kg
[~2018-09-16 08:20] MED LIST changes: +CEFDINIR300 MG PO; +DEPAKOTE125 MG PO; +KLOR-CON 1010 MEQ PO; +LEVAQUIN 500 M500 M1 PO; +METOPROLOL SUCC50 MG PO; +PULMICORT0.5 MG/21 INH; +TYLENOL EXTRA500 MG PO
[2018-09-16 08:21] VITALS: BP 111/69
[2018-09-16 08:50] LABS: ABSOLUTE NEUTROPHILS 4.6 thou/uL (1.4-8.2); BASOPHILS 0.8 % (0.0-2.0); EOSINOPHILS 0.2 % (0.0-3.0); HEMATOCRIT 31.7 % (37.0-47.0); HEMOGLOBIN 10.2 gm/dL (12.0-15.0); MCH 27.9 pg (26.0-34.0); MCHC 32.1 g/dL (28.0-37.0); MCV 86.7 fL (80.0-100.0); MONOCYTES 4.3 % (1.0-8.0); PLATELET COUNT 340 thou/uL (150-400); POLYS 75.7 % (36.0-66.0); RBC 3.66 mil/uL (4.20-5.00); RDW 20.7 % (10.5-14.5)
[2018-09-16 08:51] LABS: URINE BLOOD NEGATIVE (Negative); URINE CLARITY CLEAR; URINE COLOR YELLOW; URINE GLUCOSE-RANDOM* NEGATIVE (Negative); URINE KETONES NEGATIVE (Negative); URINE LEUKOCYTES-REFLEX NEGATIVE (Negative); URINE NITRITE-REFLEX NEGATIVE (Negative); URINE PROTEIN (DIPSTICK) TRACE (Negative); URINE SPECIFIC GRAVITY 1.015 (1.005-1.035); URINE UROBILINOGEN 0.2 E.U./dl (0.2-1.0)
[2018-09-16 08:52] LABS: ICTOTEST (BILI CONFIRMATORY) Negative (Negative); URINE BILIRUBIN NEGATIVE (Negative)
[2018-09-16 08:55] LABS: ANION GAP 8 mmol/L (7-16); BUN 22 mg/dL (7-18); CALCIUM 9.6 mg/dL (8.5-10.1); CHLORIDE 101 mmol/L (98-107); CO2 29 mmol/L (21-32); CREATININE 1.1 mg/dL (0.6-1.0); GLUCOSE 113 mg/dL (74-106); SODIUM 138 mmol/L (136-145)
[2018-09-16 09:05] LABS: ALBUMIN 2.6 g/dL (3.4-5.0); MAGNESIUM 1.8 mg/dL (1.8-2.4); SGOT 18 U/L (15-37); SGPT 24 U/L (30-65); TOTAL BILIRUBIN 0.6 mg/dL (<0.1-1.0); TOTAL PROTEIN 7.5 g/dL (6.4-8.2); TROPONIN-I <0.06 ng/mL (<0.06)
[2018-09-16 11:10] LABS: ANISOCYTOSIS 1+; POIKILOCYTOSIS SLIGHT
[2018-09-16 12:03] VITALS: BP 118/55
[2018-09-16 12:41] VITALS: BP 106/56
--- NOTE | 2018-09-16 13:40 | NUR ---
PT ARRIVED TO [facility] AT 1300. PT IS A&OX4. PT IS ON ROOM AIR. PT IS A FALL RISK AND FALL PRECAUTIONS IN PLACE. VSS. 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 BED ALARM ON .
[2018-09-16 15:33] LABS: ALBUMIN 2.7 g/dL (3.4-5.0); TOTAL PROTEIN 6.9 g/dL (6.4-8.2)
--- NOTE | 2018-09-16 16:04 | EKG ---
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 : 1945 Requested By: Cuauhtemoc Alatorre Order Number: [id number] MD: Clement Underwood Measurements Intervals [place] Rate: 120 P: 72 NC: 125 QRS: 20 QRSD: 77 T: 61 QT: 319 QTc: 451 Interpretive Statements Sinus tachycardia Paired ventricular premature complexes Probable left atrial enlargement Compared to ECG 08/14/2018 08:57:10 Ventricular premature complex(es) now present Electronically Signed On 09-16-2018 16:04:25 CDT by Clement Underwood [email or web address] ��������������������������������������������� <ELECTRONICALLY SIGNED> ���������������������������������������� By: Clement Underwood MD ��������������������������������������������� 09/16/18 1604 0825 Clement Underwood MD /[facility]
[2018-09-16 19:42] VITALS: BP 133/53
[2018-09-16 22:57] VITALS: BP 144/63
--- NOTE | 2018-09-17 04:48 | NUR ---
1900 PT ALERT AND ORIENTED DENIES PAIN. PT TEARY DUE TO PROGRESSIVE DECLINE AND INABILITY TO CARE FOR HER SELF. DIFFICULTIES VOIDING OVER NIGHT. TOTAL OUT PUT 450CC. BLADDER SCANNED X 2 174, AND 239 PVR RESPECTIVELY. 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 O2 2L NASAL CANNULA INITIATED. NO FURTHER C/O STATED. WILL CONTINUE TO FOLLOW POC.
[2018-09-17 05:00] VITALS: BP 140/60
[2018-09-17 08:00] VITALS: BP 136/57
[2018-09-17 10:41] LABS: HEMATOCRIT 24.6 % (37.0-47.0); MCH 28.3 pg (26.0-34.0); MCHC 31.4 g/dL (28.0-37.0); MCV 90.2 fL (80.0-100.0); RBC 2.73 mil/uL (4.20-5.00); RDW 21.9 % (10.5-14.5); WBC 4.1 thou/uL (4.0-11.0)
[2018-09-17 10:44] LABS: HEMOGLOBIN 7.7 gm/dL (12.0-15.0)
[2018-09-17 10:46] LABS: CALCIUM 8.6 mg/dL (8.5-10.1); CREATININE 0.9 mg/dL (0.6-1.0); MAGNESIUM 2.4 mg/dL (1.8-2.4); POTASSIUM 4.2 mmol/L (3.5-5.1)
[2018-09-17 11:03] LABS: % SATURATION 10 % (20-39); IRON 24 ug/dL (50-170); TIBC 236 ug/dL (250-450)
[2018-09-17 12:00] VITALS: BP 116/35
[2018-09-17 12:10] LABS: FOLIC ACID 41.1 ng/mL (8.6-58.9)
--- NOTE | 2018-09-17 13:42 | NUR ---
met with patient and spouse at bedside. Patient admits with weakness/falls. Patient resides with spouse in independent home all needs on one level. patient uses a walker for ambulation. Spouse reports he drives patient for apts and has a wc present in room he reports he uses for patient. discussed post acute care, patient has been at [facility] in past. Questioned if interested in referral. Patient complaining of neck pain and spouse nodding yes to referral for post acute care. Left message with [facility] and planned faxed referral. Will need to proceed with auth [employer] P[employer].
--- NOTE | 2018-09-17 14:47 | NUR ---
FAXED REFERRAL TO [facility] SPOKE WITH PARTH IN ADM SHE RECEIVED REFERRAL AND WILL REVIEW STILL NEED PT/OT NOTES FAXED ONCE AVAILABLE. DCP TO FOLLOW.
[2018-09-17 16:00] VITALS: BP 117/37
--- NOTE | 2018-09-17 18:01 | NUR ---
ASSUMED CARE OF PT AT SHIFT CHANGE. ASSESSMENTS CHARTED. MEDS GIVEN PER MAY. PT ALERT AND ORIENTED, FORGETFUL AT TIMES. VSS. HGB LAB CHANGE REPORTED TO PHYSICIAN THIS SHIFT- ORDERS RECEIVED. PT CHOKED ON BFAST THIS AM, PHYSICIAN NOTIFIED, SPEECH EVAL CONSULTED, CXR ORDERED- REFER TO RESULTS. PT DIET CHANGED TO MECH SOFT. PT UP X1 ASSIST TO COMMODE TOLERATING FAIR. PT WALKED WITH PHYS THERAPY TODAY. SPOUSE AT BEDSIDE THROUGHOUT SHIFT. AWAITING STOOL SPECIMEN FOR OCCULT BLOOD. PT C/O NECK PAIN FROM PREVIOUS FALL. MANAGED WITH PO TYLENOL. APPETITE INADEQUATE THIS SHIFT, ENCOURAGED MEALS MUCH TOLERATED. PT CURRENTLY RESTING IN BED, DENIES CONCERNS WILL CONT TO MONITOR AND FOLLOW POC.
[2018-09-17 21:01] VITALS: BP 120/40
[2018-09-18 04:04] VITALS: BP 146/46
--- NOTE | 2018-09-18 04:16 | NUR ---
PT RESTED OVER NIGHT. HAD A BOWEL MOVEMENT. SAMPLE COLLECTED FOR BLOOD OCCULT. PT STILL TEARY WITH HE INABILITY TO DO ADLS. VOIDING BY BEDSIDE COMMODE. A0 X 4 WITH INTERMITENT CONFUSION. VITALS STABLE NO FEVER. WILL CONTINUE TO FOLLOW POC
[2018-09-18 04:22] LABS: HEMATOCRIT 25.5 % (37.0-47.0); HEMOGLOBIN 8.2 gm/dL (12.0-15.0); MCH 28.5 pg (26.0-34.0); MCHC 32.2 g/dL (28.0-37.0); MCV 88.5 fL (80.0-100.0); RBC 2.88 mil/uL (4.20-5.00); RDW 21.7 % (10.5-14.5); WBC 4.2 thou/uL (4.0-11.0)
[2018-09-18 04:30] LABS: CALCIUM 8.8 mg/dL (8.5-10.1); CREATININE 0.8 mg/dL (0.6-1.0); MAGNESIUM 1.6 mg/dL (1.8-2.4); POTASSIUM 3.5 mmol/L (3.5-5.1)
[2018-09-18 08:00] VITALS: BP 113/49; BP 139/46; BP 86/52
[2018-09-18 09:00] VITALS: BP 139/96
--- NOTE | 2018-09-18 09:08 | NUR ---
ASSUMED CARE OF PT APPROX 0715, REPORT OF TEARS/LABILE. A&OX4, IS NOT IMPULSIVE, SPOUSE WILL BE COMING UP. TEARS OFTEN YET SEEM TO NOT MATCH SITUATION. STATES SHE DOES NOT WANT TO GO TO REHAB, IS FEARFUL. WILL CONTINUE TO ASSURE. WEARS 02 HERE AT 2L, SATTING AT 98%, WILL DO TRIAL LATE A.M. DOWN AT 1L. PT USES CALL LIGHT FOR NEEDS. SHOWED HER HOW TO USE CALL LIGHT AND ENCOURAGED HER TO USE FOR ANYTHING
[2018-09-18] MEDS ORDERED: IRON325 PO (11:36)
[2018-09-18] MEDS ORDERED: SENNA-TIME S T1 EACH PO (11:40)
[2018-09-18] MEDS ORDERED: SPIRIVA INH (11:41)
--- NOTE | 2018-09-18 12:29 | NUR ---
[facility] CAN ACCEPT THE PT TODAY AND THEY HAVE SUBMITTED FOR INS AUTH. DC READY TODAY IF AUTH OBTAINED. PT AND SPOUSE UPDATED. PT ANIXOUS ABOUT SNF BUT SPOUSE DOES NOT FEEL HE CAN CARE FOR HER AT HOME WITHOUT HER GETTING STRONGER. SUPPORT PROVIDED. CHART COPY INPROGRESS. CARE TEAM UPDATED. LIKELY DC TO SNF LATER TODAY.
--- NOTE | 2018-09-18 16:53 | NUR ---
PT D/C'D AFTER HAVING IV AND TELE REMOVED BY JEREMY, RN, PT SAID GOOD BYE. ALL PAPERS SENT W/PT CALLED FACILITY AND SPOKE TO [facility] WHO SAID SHE'D CALL BACK TO REC REPORT AFTER DINNER. GAVE HER DIRECT NUMBER, PT IN [facility] UPON DEPARTURE
== END 2018-09-18 16:47 | DRG 682 ==
LOC: ER 08:20 → EROBS 10:55 → 2N 10:55
PROVIDERS: Emergency Medicine; ADMIT Internal Medicine
DX: N17.9 Acute kidney failure, unspecified (principal); E43 Unspecified severe protein-calorie malnutrition; I95.1 Orthostatic hypotension; J44.9 Chronic obstructive pulmonary disease, unspecified; E11.9 Type 2 diabetes mellitus without complications; F32.9 Major depressive disorder, single episode, unspecified; F41.9 Anxiety disorder, unspecified; E83.42 Hypomagnesemia; D50.9 Iron deficiency anemia, unspecified; I49.3 Ventricular premature depolarization; R00.0 Tachycardia, unspecified; Z66 Do not resuscitate; R13.10 Dysphagia, unspecified; F03.90 Unspecified dementia, unspecified severity, without behavioral disturbance, psychotic disturbance, mood disturbance, and anxiety; I10 Essential (primary) hypertension; E78.5 Hyperlipidemia, unspecified; M19.90 Unspecified osteoarthritis, unspecified site; S16.1XXA Strain of muscle, fascia and tendon at neck level, initial encounter; Z68.21 Body mass index [BMI] 21.0-21.9, adult; Z86.73 Personal history of transient ischemic attack (TIA), and cerebral infarction without residual deficits; Z86.14 Personal history of Methicillin resistant Staphylococcus aureus infection; Z88.1 Allergy status to other antibiotic agents; Z88.2 Allergy status to sulfonamides; Z88.8 Allergy status to other drugs, medicaments and biological substances; Z87.891 Personal history of nicotine dependence; Z82.49 Family history of ischemic heart disease and other diseases of the circulatory system; Z79.899 Other long term (current) drug therapy; W18.39XA Other fall on same level, initial encounter; Y93.89 Activity, other specified; Y92.89 Other specified places as the place of occurrence of the external cause; Y99.8 Other external cause status
CPT/HCPCS: 10081

== ENCOUNTER → 2020-01-07 | Outpatient (CLI) | payer OTHER ==
[~2020-01-07] MED LIST changes: +IRON325 PO; +SENNA-TIME S T1 EACH PO; +SPIRIVA INH
== END ==
LOC: RAD 08:11
PROVIDERS: ATTEND Pediatrics
DX: R06.02 Shortness of breath (principal)